=== PATIENT | female | born 1985 | race Caucasian/White ===

== ENCOUNTER → 2020-07-11 16:21 | Outpatient (CLI) | payer BC, MEDICAID, SELFPAY | PROVIDERS: PCP Internal Medicine; Visit Provider Internal Medicine | DX: R00.2 Palpitations (principal); I10 Essential (primary) hypertension | CPT/HCPCS: 93225; 93226 ==

== ENCOUNTER → 2020-07-17 09:49 | Outpatient (CLI) | payer BC, MEDICAID, SELFPAY ==
--- NOTE | 2020-07-17 | CA_ITS ---
APPROVED REPORT EXAM: Comprehensive 2D, Doppler, and color-flow Echocardiogram Daycare Worker: Bre Hull CRT Ht: 5 ft 3 in Wt: 165lbs BSA: 1.78 BP: 115/96 mmHg Indications: Shortness of Breath, Palpitations, Fatigue, Hypertension/HDD 2D Dimensions LVOT 2.10 cm (M/F) 1.5-2.5 M-Mode Dimensions RVDd 2.17 cm (0.9-2.6) LA Diam 2.24 cm (1.9-4.0) LVDd 3.64 cm (3.5-5.7) Ao Diam 3.05 cm (2.0-3.7) LVDs 2.35 cm (3.5-5.7) IVSd 1.23 cm (0.6-1.1) PWd 0.70 cm (0.6-1.1) EF (Teich) 65.80% FS 35.40% EDV (Teich) 55.90 mL ESV (Teich) 19.10 mL LV Diastology E Decel Time 150.00 (160-240 msec) E/A Ratio 0.89 MED E' 11.70 (< 7 cm/sec) E'/MED E' Ratio 4.76 (>14) LAT E' 13.20 (<10 cm/sec) E/LAT E' Ratio 4.22 (>14) Aortic Valve AO Peak GR. 5.10 mmHg Mitral Valve MV E Max Gurinder. 56.00 (40-130 cm/s) MV A Velocity 63.00 (40-130 cm/s) E/A Ratio 0.89 MV Decel. Time 150.00 (160-240 ms) MV PHT 44.00 ms Pulmonary Valve PV Peak Velocity 75.00 (50-150 cm/s) Tricuspid Valve TR P. Velocity 162.00 cm/s RAP Estimate 10.00 mmHg RVSP 20.50 mmHg Left Ventricle Left atrium is normal size, left ventricle is normal size, there is no concentric left ventricular hypertrophy, visually estimated ejection fraction 55% with no regional wall motion abnormality, diastolic parameters are within normal range. Right Ventricle Right atrium and right ventricular normal size and contractility. Aortic Valve Aortic valve is normal, there is no aortic stenosis or aortic insufficiency. Mitral Valve Mitral valve is normal, there is trace mitral regurgitation. Tricuspid Valve Tricuspid valve grossly normal, there is trace tricuspid regurgitation. Tricuspid regurgitation jet velocity is inadequate for calculation of the right ventricular systolic pressure. Pulmonic Valve Pulmonic valve is grossly normal. Great Vessels Aortic root is normal size. Pericardium No significant pericardial effusion noted. Conclusion 1. Normal left ventricular size, preserved left ventricular systolic function, visually estimated ejection fraction 55% with no regional wall motion abnormality, diastolic parameters are within normal range. 2. Trace mitral and tricuspid regurgitation of no hemodynamic significance. 3. No significant pericardial effusion noted. Electronically signed by : Derek Choudhury, 07/18/2020 06:01:52
== END ==
PROVIDERS: PCP Internal Medicine; Visit Provider Internal Medicine
DX: R00.2 Palpitations (principal); I10 Essential (primary) hypertension
CPT/HCPCS: 93306

== ENCOUNTER → 2021-09-25 17:25 | Outpatient (CLI) | payer BC, MEDICAID, SELFPAY ==
[2021-09-25 18:15] LABS: Basophils % 0.5 % (0.1-2.0); Eosinophils # 0.1 K/mm3 (0.0-0.4); Eosinophils % 1.8 % (0.1-12.0); Hematocrit 45.7 % (37.0-47.0); Hemoglobin 15.1 g/dL (12.2-16.2); Lymphocytes # 2.9 K/mm3 (0.7-4.5); Lymphocytes % 41.4 % (10-50); Mean Corpuscular HGB Conc 33.1 g/dL (31.8-35.4); Mean Corpuscular Hemoglobin 28.7 pg (27.0-31.2); Mean Corpuscular Volume 86.7 fl (81-99); Mean Platelet Volume 8.2 fl (7.4-10.4); Monocytes # 0.4 K/mm3 (0.1-1.0); Monocytes % 6.1 % (1.7-9.3); Neutrophils # 3.5 K/mm3 (1.8-7.8); Neutrophils % 50.2 % (37.0-80.0); Platelet Count 306 K/mm3 (142-424); Red Blood Count 5.27 M/mm3 (4.20-5.40); Red Cell Distribution Width 13.2 % (11.5-17.5); White Blood Count 6.9 K/mm3 (4.8-10.8)
[2021-09-25 18:41] LABS: Alanine Aminotransferase 45 U/L (12-78); Albumin Level 4.5 g/dl (3.5-5.0); Albumin/Globulin Ratio 1.6 (1.1-1.8); Alkaline Phosphatase 63 U/L (38-126); Anion Gap 10.9 mEq/L (5-15); Aspartate Amino Transferase 43 U/L (14-36); Bilirubin,Total 0.7 mg/dl (0.2-1.3); Blood Urea Nitrogen 13 mg/dl (7-17); Calcium 8.8 mg/dl (8.4-10.2); Carbon Dioxide 30 mmol/L (22.0-30.0); Chloride 103 mmol/L (98-107); Chol/HDL Ratio 3.7 (1-3.5); Cholesterol 141 mg/dl (140-200); Estimated Glomerular Filt Rate 81 ml/min (>60); GFR (African American) 98 ML/MIN (>60); Globulin 2.9 g/dL (1.3-3.2); Glucose 87 mg/dl (74-100); HDL Cholesterol 38 mg/dl (40-60); Potassium 3.9 mmoL/L (3.5-5.1); Sodium 140 mmol/L (136-145); Total Protein,Serum 7.4 g/dl (6.3-8.2); Triglycerides 135 mg/dl (30-150); VLDL Cholesterol 27 mg/dL (0-40)
[2021-09-25 18:52] LABS: Direct LDL Cholesterol 84.94 mg/dL (100-129)
== END ==
PROVIDERS: Visit Provider Internal Medicine
DX: I10 Essential (primary) hypertension (principal); E78.5 Hyperlipidemia, unspecified; D64.9 Anemia, unspecified
CPT/HCPCS: 80053; 80061; 85025

== ENCOUNTER → 2021-12-17 14:18 | Outpatient (POV) | payer BC, MEDICAID, SELFPAY | PROVIDERS: Visit Provider Dermatology | DX: Z00.00 Encounter for general adult medical examination without abnormal findings (principal) ==

== ENCOUNTER → 2022-05-19 10:46 | Outpatient (CLI) | payer BC, OTHER, SELFPAY ==
--- NOTE | 2022-05-19 | CA_ITS ---
FINAL REPORT TECHNIQUE: Ultrasound images of the deep venous system were obtained from the right groin to the calf veins. CLINICAL HISTORY: Pt injured right calf 5-6 weeks ago. Pain in her calf and muscle is knotted up. FINDINGS: The deep venous system is normally compressible. Normal flow is identified. IMPRESSION: No evidence of right lower extremity DVT. Reviewed, Interpreted and Dictated by Rigoberto Montoya III, MD Transcribed by Angel Potter Authenticated and [facility]
[2022-05-19 13:19] LABS: Basophils # 0.1 K/mm3 (0-0.2); Basophils % 1.6 % (0.1-2.0); Eosinophils # 0.1 K/mm3 (0.0-0.4); Eosinophils % 1.5 % (0.1-12.0); Hematocrit 46.7 % (37.0-47.0); Hemoglobin 15.8 g/dL (12.2-16.2); Lymphocytes # 1.7 K/mm3 (0.7-4.5); Lymphocytes % 25.2 % (10-50); Mean Corpuscular HGB Conc 33.9 g/dL (31.8-35.4); Mean Corpuscular Hemoglobin 30.9 pg (27.0-31.2); Mean Corpuscular Volume 91.2 fl (81-99); Mean Platelet Volume 8.6 fl (7.4-10.4); Monocytes # 0.5 K/mm3 (0.1-1.0); Monocytes % 6.6 % (1.7-9.3); Neutrophils # 4.5 K/mm3 (1.8-7.8); Platelet Count 311 K/mm3 (142-424); Red Blood Count 5.12 M/mm3 (4.20-5.40); White Blood Count 6.9 K/mm3 (4.8-10.8)
[2022-05-19 14:34] LABS: Chloride 101 mmol/L (98-107); Sodium 139 mmol/L (136-145)
[2022-05-19 14:37] LABS: Alanine Aminotransferase 38 U/L (12-78); Albumin Level 4.3 g/dl (3.5-5.0); Albumin/Globulin Ratio 1.7 (1.1-1.8); Alkaline Phosphatase 65 U/L (38-126); Aspartate Amino Transferase 43 U/L (14-36); Bilirubin,Total 0.8 mg/dl (0.2-1.3); Blood Urea Nitrogen 11 mg/dl (7-17); Carbon Dioxide 28 mmol/L (22.0-30.0); Cholesterol 140 mg/dl (140-200); Estimated Glomerular Filt Rate 94 ml/min (>60); GFR (African American) 114 ML/MIN (>60); Globulin 2.6 g/dL (1.3-3.2); Total Protein,Serum 6.9 g/dl (6.3-8.2); Triglycerides 68 mg/dl (30-150); VLDL Cholesterol 14 mg/dL (0-40)
[2022-05-19 14:38] LABS: Calcium 8.4 mg/dl (8.4-10.2); Chol/HDL Ratio 3.3 (1-3.5); Glucose 71 mg/dl (74-100); HDL Cholesterol 42 mg/dl (40-60)
[2022-05-19 14:49] LABS: Direct LDL Cholesterol 75.49 mg/dL (100-129)
== END ==
PROVIDERS: PCP Internal Medicine; Visit Provider Internal Medicine
DX: S80.11XA Contusion of right lower leg, initial encounter (principal); M79.661 Pain in right lower leg
CPT/HCPCS: 80053; 80061; 83036; 85025; 93971

== ENCOUNTER → 2022-05-19 16:16 | Outpatient (CLI) | payer BC, MEDICAID, SELFPAY | PROVIDERS: PCP Internal Medicine; Visit Provider Internal Medicine | DX: I10 Essential (primary) hypertension (principal) ==

== ENCOUNTER → 2023-06-23 15:31 | Outpatient (POV) | payer BC, OTHER, SELFPAY | PROVIDERS: PCP Internal Medicine; Visit Provider Dermatology | DX: Z00.00 Encounter for general adult medical examination without abnormal findings (principal) ==

== ENCOUNTER 2025-05-02 16:40 | Outpatient (CLI) | payer BC, OTHER, SELFPAY ==
[2025-05-02 17:34] LABS: Hematocrit 46.6 % (37.0-47.0); Hemoglobin 15.6 g/dL (12.2-16.2); Immature Granulocytes % 0.3 %; Mean Corpuscular HGB Conc 33.5 g/dL (31.8-35.4); Mean Corpuscular Hemoglobin 29.3 pg (27.0-31.2); Mean Corpuscular Volume 87.4 fl (81-99); Nucleated Red Blood Cells % 0 %; Platelet Count 341 K/mm3 (142-424); Red Blood Count 5.33 M/mm3 (4.20-5.40); Red Cell Distribution Width-SD 39.3 fL; White Blood Count 10.4 K/mm3 (4.8-10.8)
[2025-05-02 18:30] LABS: Albumin Level 4.8 g/dl (3.5-5.0); Chloride 98 mmol/L (98-107); Potassium 3.6 mmoL/L (3.5-5.1); Sodium 137 mmol/L (136-145)
[2025-05-02 18:32] LABS: Blood Urea Nitrogen 19 mg/dl (7-17)
[2025-05-02 18:33] LABS: Alanine Aminotransferase 22 U/L (12-78); Albumin/Globulin Ratio 1.8 (1.1-1.8); Alkaline Phosphatase 66 U/L (38-126); Anion Gap 14.6 mEq/L (5-15); Aspartate Amino Transferase 29 U/L (14-36); Bilirubin,Total 0.8 mg/dl (0.2-1.3); Calcium 9.7 mg/dl (8.4-10.2); Carbon Dioxide 28 mmol/L (22.0-30.0); Cholesterol 161 mg/dl (140-200); Creatinine,Serum 0.90 mg/dl (0.52-1.04); Estimated Glomerular Filt Rate 69 ml/min (>60); GFR (African American) 84 ML/MIN (>60); Globulin 2.7 g/dL (1.3-3.2); Glucose 82 mg/dl (74-100); Total Protein,Serum 7.5 g/dl (6.3-8.2); Triglycerides 93 mg/dl (30-150)
[2025-05-02 18:34] LABS: HDL Cholesterol 49 mg/dl (40-60)
[2025-05-02 19:04] LABS: Thyroid Stimulating Hormone 2.84 uIU/mL (0.465-4.68)
--- OUTSIDE RECORDS SUMMARY | 2025-05-03 10:38 | XMS_ITS | Clinical Summary ---
Author Organization [facility] Address [address] [place] [address] Phone Care Team Providers Care Toll Collector Supervisor Name Role Phone Yemi Max MD Primary Care Provider [phone] Allergies Active Allergy Reactions Criticality Noted Date Comments Minocycline Rash 10/30/2015 Medications triamterene-hydroc hlorothiazide (MAXZIDE-25) 37.5-25 mg Oral Tablet 6 Active esomeprazole (NEXIUM) 20 mg Oral Capsule, Delayed Release(E.C.) Take by mouth daily. Active L. gasseri-B. bifidum-B longum 1.5 billion cell Oral Capsule Take by mouth. Active lisinopriL (PRINIVIL;ZESTRIL) 5 mg Oral Tablet Take 5 mg by mouth daily. Active levocetirizine (XYZAL) 5 mg Oral Tablet 2 Active fluticasone propionate (FLONASE NASL) by Nasal route. Active pantoprazole (PROTONIX) 40 mg Oral Tablet, Delayed Release (E.C.) Take 40 mg by mouth daily. 4 Active norethindrone (JAMA) 0.35 mg Oral TabletIndications: Well female exam with routine gynecological exam Take 1 Tablet by mouth daily. 28 Tablet 11 5 Active Active Problems Problem Noted Date Diagnosed Date Pap smear abnormality of cer vix/human papillomavirus (HPV) positive 01/06/2025 Overview (01/06/2025): 2024: HPV Positive. Negative Genotyping. Cytology: normal. Rpt pap in one year Surgical History Surgery Date Site/Laterality Comments TONSILLECTOMY 2000 ADENOIDECTOMY 1994 TYMPANOSTOMY TUBE PLACEMENT CHOLECYSTECTOMY Medical History Medical History Date Comments Hypertension Acid reflux IBS (irritable bowel syndrome) Family History Medical History Relation Name Comments Diabetes Father Harley Pryor Stroke Father Harley Pryor Breast Cancer Maternal Aunt genoveva clark great aunt Breast Cancer Maternal Grandfather García Gómez Hypertension Mother Tatyana Pryor Thyroid Disease Mother Tatyana Pryor Relation Name Status Comments Father Harley Pryor Alive Maternal Aunt genoveva clark Maternal Grandfather García Gómez Mother Tatyana Pryor Alive Social History Tobacco Use Types Packs/Day Years Used Date Smoking Tobacco: Never Smokeless Tobacco: Never Tobacco Cessation:Counseling Given: Not Answered Alcohol Use Standard Drinks/Week Comments Yes 0 (1 standard drink = 0.6 oz pur e alcohol) 1-2 monthly Sexually Active Control Partners Comments Yes OCP Male Comments No Sex and Gender Information Value Date Recorded Sex Assigned at Not on file Legal Sex Female 4:46 PM EDT Gender Identity Not on file Sexual Orientation Not on file Obstetrics History Para Term AB IAB SAB Ectopic Multiple Livin g Live Births 0 0 0 0 0 0 0 0 0 0 0 Last Filed Vital Signs Vital Sign Reading Time Taken Comments Blood Pressure 112/62 01/04/2025 8:21 AM EDT Pulse 88 08/18/2019 9:37 AM EST Temperature - - Respiratory Rate - - Oxygen Saturation 98% 08/18/2019 9:37 AM EST Inhaled Oxygen Concentration - - Weight 81.8 kg (180 lb 4 oz) 01/04/2025 8:21 AM EDT Height 157.5 cm (5' 2 ) 01/04/2025 8:21 AM EDT Body Mass Index 32.97 01/04/2025 8:21 AM EDT Plan of Treatment Health Maintenance Due Date Last Done Comments Annual Wellness Exam 1987 DTaP/TDaP/Td (2 - Tdap) 12/24/1999 12/23/1999 COVID-19 Vaccine ( season) 2025 Influenza Vaccine (#1) 2025 Breast Cancer Screening 11/19/2026 11/20/19, 09/12/2023, 09/06/2022, Additional history exists Pap Smear 01/05/2028 01/04/2025, 10/08, 08/18/2019, Additional history exists Cervical Cancer Screening 01/04/2030 HPV/Pap Cotest 01/04/2030 01/04/2025 Hepatitis B Vaccine Completed 11/23/1996, 08/22/1996, 07/19/1996 Meningococcal B Vaccine Aged Out No l onger eligible based on patient's age to complete this topic Pneumococcal Vaccine 0-49 Aged Out No longer eligible based on patient's age to complete this topic Procedures Procedure Name Priority Date/Time Associated Diagnosis Comments ELECTRON BEAM MACHINE WELDER SETTER CYTOLOGY REQUEST (PAP ONLY) Routine 01/04/2025 8:41 AM EDT Well female exam with routine gynecological exam MM MAMMO DIGITAL YURIY SCREEN BILAT Routine 11/19/2024 11:14 AM EDT Encounter for screening mammogram for malignant neoplasm of breast from Last 3 Months or Most Recently Relevant to Health Maintenance Results * ELECTRON BEAM MACHINE WELDER SETTER CYTOLOGY REQUEST (PAP ONLY) (01/04/2025 8:41 AM EDT) CASE REPORT Gynecologic Cytology Report Case: [id number] Authorizing Provider: Rozina Maguire CNM Collected: 01/04/2025 0841 Ordering Location: [facility] Received: 01/04/2025 0841 First Screen: Octavio Figueroa CT Rescreen: Oli Reynolds CT Specimen: LIQUID-BASED PAP - CERVICAL/ENDOCERV ICAL, Cervix, Endocervical 01/06/2025 11:12 AM EDT [facility] PAP FINAL DIAGNOSIS Negative for intraepithelial lesion or malignancy 01/06/2025 11:12 AM EDT [facility] at 1112 EDT MICROSCOPIC DESCRIPTION Microscopic examination is performed and the findings corroborate the diagnosis. 01/06/2025 11:12 AM EDT [facility] PAP SMEAR ADEQUACY Satisfactory for evaluation 01/06/2025 11:12 AM EDT [facility] ENDOCERVICAL T-ZONE Transformation zone present 01/06/2025 11:12 AM EDT [facility] EMBEDDED IMAGES 11:12 AM EDT [facility] PAP DISCLAIMER The Pap Smear is a screening test that aids in the detection of cervical cancer and cancer precursors. Both false positive and false negative results can occur. The test should be used at regular intervals, and positive results should be confirmed before definitive therapy. Processed using the ThinPrep Loop Tender Automated cytology screening device (LAFASO). 01/06/2025 11:12 AM EDT [facility] Thin Prep ENDOCERVICAL STRUCTURE / Unknown 01/04/2025 8:41 AM EDT 01/04/2025 8:41 AM EDT Rozina Maguire CN CYTOLOGY ORDERABLES Fin al Result [place] [id number] * MM MAMMO DIGITAL YURIY SCREEN BILAT (11/19/2024 11:14 AM EDT) Anatomical Region Laterality Modality Breast Bilateral Mammography 11/19/2024 11:1 4 AM EDT Impressions 11/21/2024 10:02 AM EDT Negative ([id number]) RECOMMENDATION: Routine Screening Mammogram in 1 Year Bilateral . . COMMENTS: DISCLAIMER *The patient was notified by MyChart or mail of the results for this examination. *The patient's information was entered into a reminder system with a target due date for the next breast imaging, in accordance with the [place] [employer] and the Society of Breast Imaging recommendations. *Breast Imaging has a false negative rate of 15%. *Any patient with a palpable abnormality, unexplained by breast imaging, should be managed on a clinical basis by the attending physician. Narrative 11/21/2024 10:02 AM EDT EXAM: MM MAMMO DIGITAL YURIY SCREEN BILAT EXAM DATE: 11/19/2024 11:14 AM INDICATION: Z12.31-Encounter for screening mammogram for malignant neoplasm of [id number] COMPARISON STUDIES: Compared with prior studies the most recent being 09/12/2023 MM MAMMO DIGITAL YURIY SCREEN BILAT at [facility] 09/06/2022 MM MAMMO DIGITAL YURIY SCREEN BILAT at [facility] 05/18/2021 MM MAMMO DIGITAL YURIY SCREEN BILAT at [facility] TISSUE DENSITY: The breasts are heterogeneously dense, which may obscure small masses. FINDINGS: No mammographic evidence of malignancy. Procedure Note Dakota Gonzalez III, MD - 11/21/2024 EXAM: MM MAMMO DIGITAL YURIY SCREEN BILAT EXAM DATE: 11/19/2024 11:14 AM INDICATION: Z12.31-Encounter for screening mammogram for malignantneoplasm of [id number] COMPARISON STUDIES: Compared with prior studies the most recent being 09/12/2023 MM MAMMO DIGITAL YURIY SCREEN BILAT at [facility] 09/06/2022 MM MAMMO DIGITAL YURIY SCREEN BILAT at [facility] 05/18/2021 MM MAMMO DIGITAL YURIY SCREEN BILAT at [facility] TISSUE DENSITY: The breasts are heterogeneously dense, which may obscuresmall masses. FINDINGS: No mammographic evidence of malignancy. IMPRESSION: Negative ([id number]) RECOMMENDATION: Routine Screening Mammogram in 1 Year Bilateral . . COMMENTS: DISCLAIMER *The patient was notified by MyChart or mail of the results for this examination. *The patient's information was entered into a reminder system with atarget due date for the next breast imaging, in accordance with the [place] [employer] and the Society of Breast Imaging recommendations. *Breast Imaging has a false negative rate of 15%. *Any patient with a palpable abnormality, unexplained by breast imaging,should be managed on a clinical basis by the attending physician. Rozina Maguire CNM IM MAMMOGRAPHY ORDERAB LES Final Result from Last 3 Months or Most Recently Relevant to Health Maintenance Insurance [employer] PPO Member Subscriber Plan / Payer (Ef fective 2021-Present) Name:Mary Pryor Relation to Subscriber:Self Name:Mary Pryor Payer ID:[id number] (NAIC) Type:Not on file Address: [address] [place] [id number] [employer] PPO Care Teams Toll Collector Supervisor Relationship Specialty Start Date End Date Yemi Max MD [address] [place] [address] PCP - General Internal Medicine 03/15/20
--- OUTSIDE RECORDS SUMMARY | 2025-05-03 10:38 | XMS_ITS | Encounter Summary ---
Author Organization [place] [address] Care Team Providers Care Assembler Hydraulic Backhoe Name Role Phone Yemi Max MD Primary Care Provider [phone] Encounter Details Date Type Department Care Team (Late st Contact Info) Description 01/06/2025 Results Follow-Up [facility] [address] [place] [address] Rozina Maguire [facility] [address] [place], [place] [id number] HPV HIGH RISK WITH REFLEX TO GENOTYPE, LAUNDRY ATTENDANT CYTOLOGY REQUEST (PAP ONLY), HPV GENOTYPE Social History Tobacco Use Types Packs/Day Years Used Date Smoking Tobacco: Never Smokeless Tobacco: Never Alcohol Use Standard Drinks/Week Comments Yes 0 (1 standard drink = 0.6 oz pur e alcohol) 1-2 monthly Sexually Active Control Partners Comments Yes OCP Male Comments No Sex and Gender Information Value Date Recorded Sex Assigned at Not on file Legal Sex Female 4:46 PM EDT Gender Identity Not on file Sexual Orientation Not on file documented as of this encounter Plan of Treatment Not on file documented as of this encounter Visit Diagnoses Not on filedocumented in this encounter Care Teams Assembler Hydraulic Backhoe Relationship Specialty Start Date End Date Yemi Max MD [address] [place] [address] PCP - General Internal Medicine 03/15/20 documented as of this encounter
--- OUTSIDE RECORDS SUMMARY | 2025-05-03 10:38 | XMS_ITS | Clinical Summary ---
Author Organization [facility] Address [address] [place] [address] Care Team Providers Care Animal Keeper Head Name Role Phone Yemi Max MD Primary Care Provider [phone] Allergies Active Allergy Reactions Criticality Noted Date Comments Minocycline Hives,Itching,Rash,Swelling High 016 Medications triamterene-hydr ochlorothiazide (Maxzide-25) 37.5-25 MG tablet 01/01/2024 Active norethindrone (Micronor) 0.35 MG tablet Active pantoprazole (Protonix) 40 MG EC tablet Take 1 tablet (40 mg) by mouth 1 (one) time each day. 11/26/2023 Active Social History Tobacco Use Types Packs/Day Years Used Date Smoking Tobacco: Never Assessed Comments Unknown Sex and Gender Information Value Date Recorded Sex Assigned at Not on file Legal Sex Female 3:45 PM EDT Gender Identity Not on file Sexual Orientation Not on file Last Filed Vital Signs Vital Sign Reading Time Taken Comments Blood Pressure 141/85 07/20/2024 9:35 AM EST Pulse 94 07/20/2024 9:33 AM EST Temperature - - Respiratory Rate - - Oxygen Saturation - - Inhaled Oxygen Concentration - - Weight 79.4 kg (175 lb) 07/20/2024 9:33 AM EST Height 157.5 cm (5' 2 ) 07/20/2024 9:33 AM EST Body Mass Index 32.01 07/20/2024 9:33 AM EST Plan of Treatment Health Maintenance Due Date Last Done Comments [facility]-Depression Screening 1984 [facility]-HIV Screening 1984 [facility]-Hepatitis C Screening 1984 [facility]-/Child/Adol SDOH Screenings 1984 [facility]-Varicella Vaccines (1 of 2 - 13+ 2-dose series) 1997 [facility]-DTaP,Tdap,and Td Vaccines (2 - Tdap) 12/24/1999 12/23/1999 [facility]- SDOH Screenings 2002 [facility]-Adult SDOH Screenings 2002 [facility]-Pap Smear 2005 HPV Vaccines (1 - 3-dose SCDM series) 2011 [facility]-Cervical Cancer Screening 2014 [facility]-HPV/Cotest 2014 [id number]-84 Vaccine ( - 2023- season) 2025 [facility]-Influenza Vaccine (#1) 2025 [facility]-Zoster Vaccines (1 of 2) 2034 [facility]-Hepatitis B Vaccines Completed 997, 08/22/1996, 07/19/1996 [facility]-Obesity Intervention Completed 024, 06/29/2024, 03/10/2024, Additional history exists [facility]-HIB Vaccines Aged Out No longer e ligible based on patient's age to complete this topic [facility]-Hepatitis A Vaccines Aged Out No longer eligible based on patient's age to complete this topic [facility]-IPV Vaccines Aged Out No longer e ligible based on patient's age to complete this topic [facility]-Pneumococcal Vaccine: Pediatrics (0 to 5 Years) and At-Risk Patients (6 to 49 Years) Aged Out No longer eligible based on patient's age to complete this topic [facility]-Rotavirus Vaccines Aged Out No lo nger eligible based on patient's age to complete this topic Insurance [employer] Care Teams Animal Keeper Head Relationship Specialty Start Date End Date Yemi Max MD [address] [facility] [address] [place] [address] PCP - General 01/15/24
== END 2025-05-02 23:59 ==
LOC: LAB.DROPOF 05-03 10:35
PROVIDERS: PCP Internal Medicine; Visit Provider Internal Medicine
DX: E78.5 Hyperlipidemia, unspecified (principal); I10 Essential (primary) hypertension; R00.2 Palpitations
CPT/HCPCS: 80053; 80061; 84443; 85025